=== PATIENT | female | born 1975 | race Caucasian/White ===

== ENCOUNTER 2017-08-27 10:00 | Emergency (ER) | payer BC ==
[2017-08-27] MEDS ORDERED: 0.9 % SODIUM CHLORIDE 1,000 ML BAG IV ONE (10:05)
--- NOTE | 2017-08-27 10:12 | Emergency Department Record ---
History of Present Illness - General Chief complaint: Flank Pain Stated complaint: FLANK PAIN LEFT SIDE Time Seen by Provider: 08/27/17 10:02 Source: Patient, Family Mode of Arrival: Ambulatory Limitations: No limitations - History of Present Illness Initial comments: 42 yo female presents with left sided flank pain and LUQ pain. The onset was about 2 days ago. The pain radiates around the abdomen. The pain intensified yesterday. Mild nausea but no vomiting. No diarrhea. No fevers or chills. She has had prior adhesions. Her appendix has been removed. No rash. She denies a history of renal stones. No cough. PCP is Dr Salazar. She declined pain medication at this time. MD Complaint: Other (Left flank pain) -: Days(s) (2) Radiation: L flank Quality: Aching, Stabbing Consistency: Constant Improves with: None Worsens with: None Associated Symptoms: Abdominal pain, Nausea/vomiting (nausea), Other - Related Data Allergies Allergy/AdvReac Type Severity Reaction Status Date / Time levofloxacin [From Levaquin] Allergy Severe Tongue Unverified 08/27/17 10:08 Swelling cefaclor [From Ceclor] Allergy Intermediate Rash Unverified 08/27/17 10:08 Penicillins Allergy Intermediate RASH Unverified 08/27/17 10:08 cephalexin monohydrate Allergy Unknown PT UNSURE Unverified 08/27/17 10:08 [From Keflex] OF REACTION Review of Systems Constitutional: Denies: Chills, Fever, Weakness Eyes: Denies: Eye discharge ENT: Denies: Congestion, Throat pain Respiratory: Denies: Cough, Dyspnea, Hemoptysis, Wheezes Cardiovascular: Denies: Chest pain, Palpitations, Syncope Endocrine: Denies: Fatigue, Polydipsia, Polyuria Gastrointestinal: Reports: Abdominal pain, Nausea. Denies: Constipation, Diarrhea, Hematemesis, Hematochezia, Melena, Vomiting Genitourinary: Denies: Abnormal menses, Discharge, Dysuria, Hematuria, Urgency Musculoskeletal: Reports: Back pain. Denies: Arthralgia, Joint swelling, Myalgia, Neck pain Skin: Denies: Bruising, Change in color, Rash Neurological: Denies: Headache, Numbness, Weakness Psychiatric: Denies: Anxiety Hematological/Lymphatic: Denies: Blood Clots, Easy bleeding, Easy bruising, Swollen glands Physical Exam - General General Appearance: Alert, Oriented x3, Cooperative, No acute distress Limitations: No limitations - Head Head exam: Normal inspection - Eye Eye exam: Normal appearance. negative: Conjunctival injection, Scleral icterus - ENT ENT exam: Normal exam, Mucous membranes moist Ear exam: Normal external inspection Nasal Exam: Normal inspection Mouth exam: Normal external inspection Teeth exam: Normal inspection - Neck Neck exam: Normal inspection - Respiratory Respiratory exam: Normal lung sounds bilaterally. negative: Respiratory distress - Cardiovascular Cardiovascular Exam: Regular rate, Normal rhythm, Normal heart sounds - GI/Abdominal GI/Abdominal exam: Soft, Tenderness (mild left flank area, abdomen is otherwise soft, no LLQ/pelvic tenderness, No eipigastric tenderness). negative: Distended , Guarding, Rigid - Rectal Rectal exam: Deferred - exam: Deferred - Extremities Extremities exam: Normal inspection, Full ROM, Normal capillary refill. negative: Tenderness - Back Back exam: Reports: Normal inspection, CVA tenderness (L), Full ROM, Tenderness. Denies: CVA tenderness (R), Rash noted - Neurological Neurological exam: Alert, Normal gait, Oriented X3 - Psychiatric Psychiatric exam: Normal affect, Normal mood - Skin Skin exam: Dry, Intact, Normal color, Warm Course - Reevaluation(s) Reevaluation #1: 08/27/17 10:15 The Patient was offered pain medication. She declined at this time 08/27/17 10:33 UA is negative for blood 08/27/17 10:40 The CBC was reviewed. No acute abnormalities. 08/27/17 10:56 The CMP is normal The Lipase is normal The HCG is negative 08/27/17 13:[address] was read as negative except a 2cm left ovarian cyst. No obstruction or acute abnormalities. The cyst is likely her dominant follicle. The was discussed with the patient. She is comfortable at this time. I offered US. She declined at this time but will call her [facility] [employer] [facility] for close follow up. We discussed the results of all of the tests and questions were answered at the time of discharge. The patient is doing well and is comfortable with DC. DC vitals were reviewed. We discussed at length reasons to immediately return to the ED as well as close follow up. The patient will call the [facility] for close follow up of this ED visit to review this visit and the tests performed Medical Decision Making - Lab Data Result diagrams: 08/27/17 10:18 08/27/17 10:18 Disposition Disposition: Discharge Clinical Impression: Flank pain, acute Ovarian cyst Qualifiers: Laterality: left Qualified Code(s): N83.202 - Unspecified ovarian cyst, left side Disposition: Home, Self-Care Condition: (1) Good Instructions: Abdominal Pain (ED) Additional Instructions: Return to ED if your symptoms worsen or if you have any concerns. If you have lower pain you will need an US to further evaluate the 2cm left ovarian cyst Follow-up with your family doctor and your [facility] for the next available appointment. Review the final Emergency Record and test results with your doctor on follow up Forms: Patient Portal Access Time of Disposition: 13:13 Quality - Quality Measures Quality Measures: N/A - Blood Pressure Screening Does Patient Have Any of the Following: No Blood Pressure Classification: Normal BP Reading Systolic Measurement: 84 Diastolic Measurement: 57 Screening for High Blood Pressure: < Normal BP, F/U Not Required > [G8783]
[2017-08-27 10:29] LABS: URINE APPEARANCE CLEAR; URINE BILIRUBIN NEGATIVE (NEGATIVE); URINE BLOOD NEGATIVE (NEGATIVE); URINE COLOR YELLOW; URINE GLUCOSE (UA) NEGATIVE (NEGATIVE); URINE KETONE NEGATIVE (NEGATIVE); URINE LEUKOCYTE ESTERASE NEGATIVE (NEGATIVE); URINE NITRITE NEGATIVE (NEGATIVE); URINE PROTEIN NEGATIVE (NEGATIVE); URINE UROBILINOGEN 0.2 E.U./dL (0.20 - 1.00)
[2017-08-27 10:31] LABS: BASO % 1.4 % (0-6); EOS % 1.6 % (0-6); GRAN % 49.1 % (47-80); HEMATOCRIT 45.6 % (35.0-47.0); HEMOGLOBIN 14.5 gm/dl (11.6-16.0); LYMPH % 35.4 % (16-45); MEAN CELL VOLUME 89.2 fl (81-97); MEAN CORPUSCULAR HEMOGLOBIN 28.4 pg (27-33); MEAN CORPUSCULAR HGB CONC 31.8 g/dl (32-36); MEAN PLATELET VOLUME 8.7 fl (7.4-10.4); MONO % 12.5 % (0-9); PLATELET COUNT 428 K/uL (130-400); RED BLOOD COUNT 5.11 M/uL (3.80-5.40)
[2017-08-27 10:33] LABS: HCG,QUALITATIVE URINE NEGATIVE (NEGATIVE)
[2017-08-27 10:41] LABS: BLOOD UREA NITROGEN 6 mg/dL (6-20); CREATININE 0.7 mg/dL (0.5-0.9); EST GLOMERULAR FILTRATION RATE > 60 mL/min; TOTAL PROTEIN 7.3 g/dL (6.6-8.7)
[2017-08-27 10:43] LABS: GLUCOSE,RANDOM 128 mg/dL (74-109)
[2017-08-27 10:46] LABS: ALB/GLOB RATIO 1.8 (1.1-1.8); ALBUMIN 4.7 g/dL (4.0-5.0); ALKALINE PHOSPHATASE 101 U/L (35-104); ALT/SGPT 20 U/L (<33); AST/SGOT 23 U/L (10.0-35.0); LIPASE 27 U/L (13-60)
--- NOTE | 2017-08-28 10:53 | CT SCAN REPORT ---
EXAM: CT OF THE ABDOMEN AND PELVIS WITH CONTRAST HISTORY: LEFT LOWER QUADRANT PAIN. TECHNIQUE: Sequential axial images were obtained from the diaphragms through the ischiorectal fossa after intravenous and oral administration of 100 ml of Omnipaque 300 contrast material. FINDINGS: The visualized lung bases are normal. The liver, gallbladder, pancreas and spleen appear normal. The adrenal glands and kidneys appear normal. The small bowel appears normal. The appendix is not visualized and is likely surgically absent. The colon appears normal. The uterus appears normal. There is a dominant follicle/left ovarian cyst measuring 2.2 cm. The urinary bladder appears normal. The osseous structures are normal. IMPRESSION: THE APPENDIX IS SURGICALLY ABSENT. THE RIGHT OVARY IS LIKELY SURGICALLY ABSENT. THERE IS A 2.2 CM DOMINANT FOLLICLE IN THE LEFT OVARY. THE REMAINDER OF THE EXAMINATION IS UNREMARKABLE. JOB NUMBER: [id number] [facility]
== END 2017-08-27 13:29 | disposition home or self-care (01) ==
LOC: ER 10:00
DX: N83.202 Unspecified ovarian cyst, left side (principal); R10.12 Left upper quadrant pain; R11.0 Nausea
CPT/HCPCS: 99284 ×2; 83690; 85025; 80053; 81003; 81025; 74177; Q9967; J7030